=== PATIENT | female | born 1995 | race Caucasian/White ===

== ENCOUNTER 2018-12-17 22:02 | Emergency (ER) | payer MEDICAID, OTHER ==
[~2018-12-17] VITALS: Ht 149.9 cm; Wt 51.8 kg
[2018-12-17 22:19] VITALS: BP 108/68
[2018-12-18] MEDS ORDERED: IBUPROFEN 600MG TABLET PO ONE (00:15)
== END 2018-12-18 00:50 | disposition left against medical advice (07) ==
LOC: ER 22:02
DX: S50.01XA Contusion of right elbow, initial encounter (principal); M25.521 Pain in right elbow; W01.0XXA Fall on same level from slipping, tripping and stumbling without subsequent striking against object, initial encounter; Y93.89 Activity, other specified; Y92.89 Other specified places as the place of occurrence of the external cause; Y99.8 Other external cause status
CPT/HCPCS: 81025; 99282